=== PATIENT | female | born 1970 | race Caucasian/White ===

== ENCOUNTER 2022-08-01 15:00 | Outpatient (CLI) | payer BC ==
[~2022-08-01] VITALS: Ht 152.4 cm; Wt 95.3 kg
[2022-08-01 15:20] VITALS: BP 139/83; PULSE 95; TEMP 98
[2022-08-01] MEDS ORDERED: ZOLOFT 25MG25 MG PO (15:20)
[2022-08-01] MEDS ORDERED: VITAMIND3 5000 PO (15:20)
--- NOTE | 2022-08-01 16:47 | NUR ---
HAD PT STAY 30 MINUTES POST INFUSION. PT STATES NO ISSUES, DOES NOT FEEL ANY REACTION SYMPTOMS. IV DC'D PT DISCHARGED
== END 2022-08-01 16:48 | disposition home or self-care (01) ==
LOC: EUO 15:00
DX: M81.0 Age-related osteoporosis without current pathological fracture (principal)
CPT/HCPCS: J3489